=== PATIENT | male | born 1955 | race Caucasian/White ===

== ENCOUNTER → 2016-11-14 | Outpatient (CLI) | payer OTHER ==
[~2016-11-14] MED LIST: ACET500T71 PO; ALPR0.5T6 PO; ASPI325T4 PO; BACLOFEN TP; CAPT1TAB7 PO; CELE200C PO; CETI10TA24 PO; CHOL200024 PO; CIPR7.5D OT; CLIN-60 PO; DICLOFENAC TP; DIPH25CA61 PO; DOCU-30 PO; FINA5TAB4 PO; FLUO30CR2 TP; FLUTICASONE PROPION NS; MELA3TAB PO; METR1KIT TP; MUPIROCIN EACH EAR; OMEP-110 PO; OXYC15TA60 PO; OXYC1TAB9 PO; OXYC5CAP4 PO; PREG75CA PO; PSEU120T9 PO; PUMPKIN SEED OIL PO; REGADENOSON 0.4 MG/5 ML SYRINGE ONE; SIMV40TA3 PO; TEST200V21 IM; TRAZ50TA18 PO; ZOLP10TA5 PO
== END | disposition home or self-care (01) ==
LOC: CFH 07:49
PROVIDERS: ATTEND Internal Medicine Cardiovascular Disease
DX: I34.0 Nonrheumatic mitral (valve) insufficiency (principal); Z79.899 Other long term (current) drug therapy
CPT/HCPCS: 78452; 93017; 93306; A9502; J2785

== ENCOUNTER 2016-12-12 15:07 | Observation (INO) | payer OTHER ==
[~2016-12-12] VITALS: Ht 175.3 cm; Wt 81.2 kg
[~2016-12-12 15:07] MED LIST changes: +ASPI325T17 PO; -ASPI325T4 PO; -CLIN-60 PO; +CLIN150C14 PO; +DOCU-131 PO; -DOCU-30 PO; -MELA3TAB PO; +MELA3TAB2 PO; +OXYC5CAP2 PO; -OXYC5CAP4 PO; -REGADENOSON 0.4 MG/5 ML SYRINGE ONE
[2016-12-12 15:58] LABS: HEMATOCRIT 50.5 % (39.2-51.8); HEMOGLOBIN 16.5 g/dL (13.7-18.0); WHITE BLOOD COUNT 9.2 x10^3/uL (3.4-10)
[2016-12-12] MEDS ORDERED: SODIUM CHLORIDE FLUSH 10ML SYR IVF ONE (16:00)
[2016-12-12] MEDS ORDERED: CLON0.1T PO (16:02)
[2016-12-12] MEDS ORDERED: DOXY75TA PO (16:02)
[2016-12-12] MEDS ORDERED: ESCI20TA10 PO (16:02)
[2016-12-12] MEDS ORDERED: LUBI24CA7 PO (16:02)
[2016-12-12] MEDS ORDERED: ZOLP10TA5 PO (16:02)
[2016-12-12] MEDS ORDERED: [UNRECOGNIZED DRUG - CODE] EXT (16:02)
[2016-12-12] MEDS ORDERED: KETAMINE EXT (16:02)
[2016-12-12 16:12] LABS: ASPARTATE AMINO TRANSFERASE 84 U/L (15-37); BLOOD UREA NITROGEN 12 mg/dL (7-18)
[2016-12-12 16:17] LABS: IS PT STATUS REG ER OR PRE ER? YES
[2016-12-12] MEDS ORDERED: DOCUSATE 100 MG CAPSULE PO PRN (17:30)
[2016-12-12] MEDS ORDERED: OXYcodone/APAP 10/325MG TABLET PO PRN (17:30)
[2016-12-12] MEDS ORDERED: ENALAPRILAT 1.25 MG/ML, 2ML IVPush PRN (17:30)
[2016-12-12] MEDS ORDERED: BISACODYL 10 MG SUPP PR PRN (17:30)
[2016-12-12] MEDS ORDERED: FLUOROURACIL TP SCH (17:30)
[2016-12-12] MEDS ORDERED: ENOXAPARIN 40 MG/0.4 ML SQ SCH (17:30)
[2016-12-12] MEDS ORDERED: ACETAMINOPHEN 325 MG TABLET PO PRN (17:30)
[2016-12-12] MEDS ORDERED: ONDANSETRON ODT 4 MG PO PRN (17:30)
[2016-12-12 18:45] VITALS: BP 123/77
[2016-12-12] MEDS ORDERED: SIMVASTATIN 40 MG TABLET PO SCH (21:00)
[2016-12-12] MEDS ORDERED: FINASTERIDE 5 MG TABLET PO SCH (21:00)
[2016-12-12] MEDS: OxyconTIN ER 15 MG TAB.ER PO SCH (21:11)
[2016-12-12] MEDS: METRONIDAZOLE TP SCH (21:11)
[2016-12-12] MEDS: SKIN CLEANSR TP SCH (21:11)
[2016-12-12] MEDS: ASPIRIN 325 MG TABLET PO SCH (21:11)
[2016-12-12] MEDS: PREGABALIN 75 MG CAPSULE PO SCH (21:11)
[2016-12-12] MEDS: [UNRECOGNIZED DRUG - OTHER] TP SCH (21:11)
[2016-12-13 08:00] VITALS: BP 132/87
[2016-12-13] MEDS: [UNRECOGNIZED DRUG - OTHER] TP SCH (09:00)
[2016-12-13] MEDS ORDERED: TEMPLATE NON-FORMULARY MED. (Escitalopram Oxalate** (Lexapro**) 20 MG) PO SCH (09:00)
[2016-12-13] MEDS ORDERED: HYDROCHLOROTHIAZIDE PO SCH (09:00)
[2016-12-13] MEDS: SKIN CLEANSR TP SCH (09:00)
[2016-12-13] MEDS ORDERED: CAPTOPRIL PO SCH (09:00)
[2016-12-13] MEDS: METRONIDAZOLE TP SCH (09:00)
[2016-12-13] MEDS: OxyconTIN ER 15 MG TAB.ER PO SCH (10:02)
[2016-12-13] MEDS: PREGABALIN 75 MG CAPSULE PO SCH (10:02)
[2016-12-13] MEDS: ASPIRIN 325 MG TABLET PO SCH (10:02)
[2016-12-13 13:07] VITALS: BP 132/84
[2016-12-13] MEDS ORDERED: OMEPRAZOLE 20 MG CAPSULE.DR PO SCH (16:30)
== END 2016-12-13 16:00 | disposition home or self-care (01) ==
LOC: ED 16:29 → INTOOBSV 16:39 → EDIP 16:39 → 4WST 18:43
PROVIDERS: ADMIT Hospitalist; ATTEND Hospitalist
DX: R41.82 Altered mental status, unspecified (principal); G89.29 Other chronic pain; K58.9 Irritable bowel syndrome, unspecified; K21.9 Gastro-esophageal reflux disease without esophagitis; I10 Essential (primary) hypertension; R06.00 Dyspnea, unspecified; F32.9 Major depressive disorder, single episode, unspecified
CPT/HCPCS: 36415; 70450; 71010; 80053; 81001; 83605; 84484; 85025; 87086; 93005; 96372; 97162; 97166; 99285; G0378; J1650

== ENCOUNTER → 2017-12-04 | Outpatient (CLI) | payer OTHER ==
[~2017-12-04] MED LIST changes: +CLON0.1T PO; +DOXY75TA PO; +ESCI20TA10 PO; +KETAMINE EXT; +LUBI24CA7 PO; +OXYC-432 PO; -OXYC1TAB9 PO; +REGADENOSON 0.4 MG/5 ML SYRINGE ONE; +TRAZ-136 PO; -TRAZ50TA18 PO; +[UNRECOGNIZED DRUG - CODE] EXT
== END | disposition home or self-care (01) ==
LOC: CFH 11:51
PROVIDERS: ATTEND Internal Medicine Cardiovascular Disease
DX: I45.10 Unspecified right bundle-branch block (principal); R06.02 Shortness of breath; Z88.1 Allergy status to other antibiotic agents; Z87.891 Personal history of nicotine dependence
CPT/HCPCS: 78452; 93017; A9502; J2785